=== PATIENT | male | born 1940 | race Caucasian/White ===

== ENCOUNTER → 2017-08-28 | Outpatient (CLI) | payer MEDICARE, OTHER | LOC: GMAJ 11:56 | PROVIDERS: ATTEND Family Medicine | DX: Z12.5 Encounter for screening for malignant neoplasm of prostate (principal) ==

== ENCOUNTER → 2019-09-29 | Outpatient (CLI) | payer MEDICARE, OTHER | LOC: GMAJ 11:35 | PROVIDERS: ATTEND Family Medicine | DX: Z12.5 Encounter for screening for malignant neoplasm of prostate (principal); I10 Essential (primary) hypertension; E78.00 Pure hypercholesterolemia, unspecified; E11.9 Type 2 diabetes mellitus without complications ==

== ENCOUNTER → 2019-11-15 | Outpatient (CLI) | payer MEDICARE, OTHER ==
--- NOTE | 2019-11-15 14:25 | MRI ---
EXAM DESCRIPTION: Lumbar Spine w/o Contrast : Magnetic Resonance Imaging. CLINICAL HISTORY: LOW BACK PAIN COMPARISON: Lumbar radiographs November 09. TECHNIQUE: Multiplanar, multiple standard sequences, non contrast MRI, lumbar spine. FINDINGS: L5-S1: The disc is well visualized on axial T2 series 501, image 3. Moderate disc space loss and disc desiccation. Moderate endplate reactive changes. Posterior flavum ligaments and bilateral facet joints (canal elements) with minimal degenerative hypertrophy, more on the right. 5 mm disc remnant versus sequestered fragment extends below the disc space with right subarticular recess stenosis and displacement of the descending right S1 nerve. Mild to moderate canal narrowing. Bilateral foraminal stenosis more on the right. L4-L5: Disc desiccation and minimal disc space loss. Left paramedian disc herniation with 4 mm superior extrusion. Hyperintense T2 annular fissure in the base of the extrusion with moderate narrowing left subarticular recess. Posterior moderate endplate reactive changes in the midline into the left of midline. Disc spur complex encroaching on the left foramen with borderline stenosis, and abutting the exiting left L4 nerve. Moderate narrowing right foramen. Mild hypertrophy of the canal elements with mild to moderate narrowing. L3-L4: Disc desiccation with disc space maintained. Posterior broad-based bulge. Moderate degenerative hypertrophy of the canal elements with AP canal diameter 9 mm. Mild to moderate bilateral foraminal narrowing. L2-L3: Minimal disc desiccation with disc space preserved. Minimal degenerative hypertrophy of the canal elements. AP canal diameter 13 mm. Bilateral mild foraminal narrowing. L1-L2: Disc desiccation with anterior endplate ridging and disc bulging more to the right. Disc space preserved. Minimal degenerative hypertrophy of the canal elements. T12-L1: Minimal disc desiccation with disc space maintained. Minimal degenerative hypertrophy of the canal elements. Conus termination is below the disc space. AP canal 13 mm. Bilateral mild foraminal narrowing. Minimal posterior bulge of the T11-T12 disc abutting the cord. Mild to moderate canal narrowing. Mild foraminal narrowing. Moderate spondylosis on the left. No significant scoliosis. Paravertebral soft tissues minimal muscle atrophy.. Distal cord normal signal and caliber. Heterogeneous marrow signal in the remaining vertebral bodies and the posterior elements. Circumscribed hyperintense hemangiomas at L2, L1, L3 and L4. Findings of active or acute spondylosis anteriorly at L5-S1 and anterior aspect of the superior T12 endplate Vertebral bodies are not compressed at any level. IMPRESSION: 1. Multiple levels of disc desiccation, endplate spondylosis, degenerative hypertrophy of the facet joints and posterior canal ligaments. Diffuse heterogeneous marrow signal. 2. L5-S1 disc remnant versus sequestered fragment encroaching on the subarticular recess stenosis and impingement of the right S1 nerve. Also bilateral foraminal stenosis more on the right which could be causing compromise of the bilateral L5 nerves. 3. Hyperintense annular fissure posterior left at L4-L5 accompanying a 4 mm inferior extrusion of the disc and herniation. Left side spondylosis with borderline stenosis and possible impingement of exiting left L4 nerve. 4. Mild central canal stenosis at L3-L4 is multifactorial. Electronically signed by: Franco Thomas MD 11/15/2019 2:24 PM CDT
== END ==
LOC: MRI 09:16
PROVIDERS: ATTEND Family Medicine
DX: M51.36 Other intervertebral disc degeneration, lumbar region (principal); M51.87 Other intervertebral disc disorders, lumbosacral region; M51.26 Other intervertebral disc displacement, lumbar region; M46.96 Unspecified inflammatory spondylopathy, lumbar region; M47.896 Other spondylosis, lumbar region; M24.28 Disorder of ligament, vertebrae; M48.061 Spinal stenosis, lumbar region without neurogenic claudication